=== PATIENT | female | born 1975 | race Caucasian/White ===

== ENCOUNTER → 2018-06-08 12:20 | Outpatient (CLI) | payer OTHER, SELFPAY ==
--- NOTE | 2018-06-08 | DI.MG.S_ITS ---
BILATERAL DIGITAL SCREENING MAMMOGRAM 3D/2D WITH CAD: 06/08/2018 CLINICAL: Routine screening. Family history of breast cancer. Comparison is made to exam dated: [facility]. The tissue of both breasts is extremely dense, which lowers the sensitivity of mammography. Current study was also evaluated with a Computer Aided Detection (CAD) system. No significant masses, calcifications, or other findings are seen in either breast. There has been no significant interval change. IMPRESSION: NEGATIVE There is no mammographic evidence of malignancy. A 1 year screening mammogram is recommended. This exam was interpreted at Station ID: [id number]. NOTE: For mammograms, a report in lay terms will be sent to the patient. Approximately 15% of breast malignancies will not be visualized mammographically. In the management of a palpable breast mass, a negative mammogram must not discourage biopsy of a clinically suspicious lesion. Electronically Signed By: Yann nguyen/brandie:06/08/2018 13:54:26 letter sent: Normal Exam ACR BI-RADS Category 1: Negative [id number]
== END ==
PROVIDERS: PCP Obstetrics & Gynecology; Visit Provider Obstetrics & Gynecology
DX: Z12.31 Encounter for screening mammogram for malignant neoplasm of breast (principal); Z80.3 Family history of malignant neoplasm of breast
CPT/HCPCS: 77063; 77067

== ENCOUNTER → 2020-12-04 14:09 | Outpatient (CLI) | payer OTHER, SELFPAY ==
--- NOTE | 2020-12-04 14:11 | DI.MG.S_ITS ---
BILATERAL DIGITAL SCREENING MAMMOGRAM 3D/2D WITH CAD: 12/04/2020 CLINICAL: Routine screening. Family history of breast cancer. Comparison is made to exams dated: 06/08/2018 mammogram and 07/07/2016 mammogram - [facility]. The tissue of both breasts is extremely dense, which lowers the sensitivity of mammography. Current study was also evaluated with a Computer Aided Detection (CAD) system. No significant masses, calcifications, or other findings are seen in either breast. There has been no significant interval change. IMPRESSION: NEGATIVE There is no mammographic evidence of malignancy. A 1 year screening mammogram is recommended. This exam was interpreted at Station ID: [id number]. NOTE: For mammograms, a report in lay terms will be sent to the patient. Approximately 15% of breast malignancies will not be visualized mammographically. In the management of a palpable breast mass, a negative mammogram must not discourage biopsy of a clinically suspicious lesion. Electronically Signed By: Niall moore/brandie:12/04/2020 15:51:48 letter sent: Normal Exam ACR BI-RADS Category 1: Negative [id number]
== END ==
PROVIDERS: PCP Obstetrics & Gynecology; Referring Provider Obstetrics & Gynecology; Visit Provider Obstetrics & Gynecology
DX: Z12.31 Encounter for screening mammogram for malignant neoplasm of breast (principal); Z80.3 Family history of malignant neoplasm of breast
CPT/HCPCS: 77063; 77067

== ENCOUNTER → 2021-09-10 13:20 | Outpatient (CLI) | payer OTHER, SELFPAY ==
--- NOTE | 2021-09-10 | DI.MG.S_ITS ---
BILATERAL DIGITAL DIAGNOSTIC MAMMOGRAM 3D/2D: 09/10/2021 CLINICAL: Bilateral Lumps. Comparison is made to exams dated: 06/08/2018 mammogram, 12/04/2020 mammogram, and 07/07/2016 mammogram - [facility]. The tissue of both breasts is extremely dense, which lowers the sensitivity of mammography. No significant masses, calcifications, or other findings are seen in either breast. IMPRESSION: INCOMPLETE: NEEDS ADDITIONAL IMAGING EVALUATION There are no abnormalities seen in either breast to correspond with the palpable nodularities in the outer aspect, however, ultrasound is recommended. Ultrasound will be performed immediately following the current exam. This exam was interpreted at Station ID: [id number]. NOTE: For mammograms, a report in lay terms will be sent to the patient. Approximately 15% of breast malignancies will not be visualized mammographically. In the management of a palpable breast mass, a negative mammogram must not discourage biopsy of a clinically suspicious lesion. Electronically Signed By: Yann Rod M.D. ddp/:09/10/2021 14:07:50 ACR BI-RADS Category 0: Incomplete [id number]
--- NOTE | 2021-09-10 | DI.US.S_ITS ---
LIMITED ULTRASOUND OF LEFT BREAST: 09/10/2021 CLINICAL: Palpable left breast lump by physician. Comparison is made to exams dated: 09/10/2021 mammogram, 12/04/2020 mammogram, 06/08/2018 mammogram, and 07/07/2016 mammogram - [facility]. Real-time ultrasound of the left breast 3 o'clock region was performed on the area of interest. No discrete cystic or solid mass lesion identified in the area of palpable abnormality. IMPRESSION: NEGATIVE There is no sonographic evidence of malignancy. There is no abnormality seen in the left breast to correspond with the palpable abnormality at 3 o'clock, however, clinical followup is recommended. A 1 year screening mammogram is recommended. This exam was interpreted at Station ID: [id number]. Electronically Signed By: Yann Rod M.D. ddwalt/:09/10/2021 14:57:50 Entry: aa - 09/11/2021 11:59:19 Ultrasound BI-RADS: 1 Negative
--- NOTE | 2021-09-10 | DI.US.S_ITS ---
LIMITED ULTRASOUND OF RIGHT BREAST AND AXILLA: 09/10/2021 CLINICAL: Palpable right breast lump by physician. Comparison is made to exams dated: 09/10/2021 mammogram, 12/04/2020 mammogram, 06/08/2018 mammogram, and 07/07/2016 mammogram - [facility]. Color flow and real-time ultrasound of the right breast 9-10 o'clock, and axilla regions were performed on the areas of interest. There is a 1 cm x 0.4 cm x 0.7 cm oval mass with an indistinct margin in the right breast at 10 o'clock posterior depth 8 cm from the nipple. This oval mass is hypoechoic. This correlates as palpated. Color flow imaging demonstrates that there is no vascularity present. No suspicious enlarged lymph nodes were seen sonographically in the right axilla. IMPRESSION: SUSPICIOUS OF MALIGNANCY The 1 cm x 0.4 cm x 0.7 cm oval mass in the right breast is suspicious of malignancy. An ultrasound guided biopsy is recommended. The findings were discussed with the patient at the conclusion of the study by Dr. Vidal. This exam was interpreted at Station ID: [id number]. Electronically Signed By: Yann Rod M.D. ddwalt/:09/10/2021 14:56:49 letter sent: Biopsy Required Ultrasound BI-RADS: 4 Suspicious for malignancy
== END ==
PROVIDERS: PCP Student in an Organized Health Care Education/Training Program; Referring Provider Student in an Organized Health Care Education/Training Program; Visit Provider Student in an Organized Health Care Education/Training Program
DX: R92.2 Inconclusive mammogram (principal); N63.25 Unspecified lump in the left breast, overlapping quadrants; N63.11 Unspecified lump in the right breast, upper outer quadrant
CPT/HCPCS: 76642; 77066; G0279

== ENCOUNTER → 2021-10-25 09:33 | Outpatient (CLI) | payer OTHER, SELFPAY ==
--- NOTE | 2021-10-25 | DI.RAD.S_ITS ---
PROCEDURE: XR FOOT LT MIN 3V INDICATIONS: LEFT FOOT PAIN TECHNIQUE: 3 views of the foot were acquired. COMPARISON: None. FINDINGS: Bones: No fractures or dislocations. No suspicious bony lesions. Soft tissues: No tibiotalar joint effusion. Achilles tendon appears normal. IMPRESSION: No fracture. No osseous lesion. If symptoms and/or clinical suspicion for pathology persists, further assessment with repeat radiographs (7-10 days) or advanced imaging (e.g. CT, MRI or bone scan) should be considered. Dictated by: Joann Vidal MD, PhD on 10/25/2021 at 11:54 Approved by: Joann Vidal MD, PhD on 10/25/2021 at 11:54
== END ==
PROVIDERS: PCP Student in an Organized Health Care Education/Training Program; Referring Provider Student in an Organized Health Care Education/Training Program; Visit Provider Student in an Organized Health Care Education/Training Program
DX: M79.672 Pain in left foot (principal)
CPT/HCPCS: 73630

== ENCOUNTER 2023-06-12 15:02 | Emergency (ER) | payer OTHER, SELFPAY ==
[2023-06-12] VITALS (8 sets, daily range): BP systolic 117–143; BP diastolic 78–88; PULSE 90–114; RESP 15–21; TEMP 36.7; O2SAT 98–100; BMI 26.1
--- NOTE | 2023-06-12 15:45 | ED_ITS ---
HPI - Head Injury General Chief complaint: Head Injury Stated complaint: blacked out and fell T-3/headache Time Seen by Provider: 06/12/23 15:42 Source: patient Mode of arrival: Ambulatory Limitations: no limitations History of Present Illness HPI Narrative: 47-year-old female oral contraceptives with complaint of syncopal episode 3 days ago. Patient states she was in the shower. She got lightheaded felt like she was going to pass out she remembers falling from hitting her head on the tile of the bathtub. Patient states she is felt lightheaded in the shower before she thinks she gets vasa dilated. She had a upper respiratory infection over the weekend with nasal congestion and suspect that this combination caused her to pass out. States that she has had headaches since then. She does have small cut on the edge of her nose. She describes the headache as being on the left frontal and behind as well. She thinks that she hit the side of the wall and then fell and hit her head on the edge of the tub. Patient states she also has some bruising on her left upper arm. She states she has felt lightheaded in the past. Does not regularly pass out. She denies any chest pain, no shortness of breath. She states her nasal congestion has resolved. She denies any nausea or vomiting today. Denies any new GI or urinary symptoms. No new swelling in extremities. Patient states she reached out to her physician she has had persistent headache although she describes it as [id number] since she hit her head. They recommended she come for evaluation. She is not on any anticoagulants. She does take an oral contraceptive. Patient has not had any long distance travel. Has had prior C-sections remotely. No tobacco, occasional alcohol but none recently. No recreational drugs. She is accompanied by her . Related Data Previous Rx's Medication Instructions Recorded zolpidem 10 mg tablet 10 mg PO BEDTIME PRN sleep #20 tabs 09/05/20 norgestimate 0.25 mg-ethinyl See Rx Instructions .Route 10/14/22 estradiol 35 mcg tablet .COMPLEX #84 tabs Allergies Allergy/AdvReac Type Severity Reaction Status Date / Time Penicillins [PENICILLINS] Allergy Unknown Unverified 09/05/20 16:11 Review of Systems Review of Systems ROS Unobtainable: All systems reviewed & are unremarkable except as noted in HPI and below Patient History Surgical History Status post delivery (10/02/09) Status post delivery (05/05/07) History of third molar tooth extraction History of tonsillectomy Social History Smoking Status: Never smoker Smoking Status: Never smoker alcohol intake frequency: holidays/special occasions only Substance Use Type: does not use Exam Narrative Exam Narrative: GEN: Patient appears in mild distress. HEAD: No evidence of trauma, no raccoon/Jensen sign. NECK: Nontender, painless range of motion, trachea midline Negative Nexus criteria, no midline line tenderness, distracting injury, altered mental status, neuro deficit, recent EtOH. EYES: PERRLA, EOMI ENT: External inspection normal except for small superficial laceration over the left bridge of the nose, trachea is midline, TM's are normal no hemotypanum, Nares are clear, no septal hematoma, no dental or oral injury, airway is normal and with normal occlusion, No bony tenderness RESP: Chest is nontender and has symmetric movement, no ecchymosis, breath sounds are normal no crackles, wheezes or rales CVS: Heart sounds are normal, no murmur noted, No JVD. ABG/GI: Nontender, soft, normal bowel sounds, no distention, no organomegaly, pelvic rock is negative NEURO: Oriented AOx3, neuro is grossly intact, sensation and motor is normal all 4 extremities moving, cranial nerves II through XII are intact, GCS is 15 PSYCH: Normal mood and affect SKIN: Intact, warm and dry, no crepitus and without decubitus, patient has ecchymosis bilateral upper extremities. BACK: No CVA tenderness, no vertebral tenderness, no step-off's, no crepitus EXT: Atraumatic, hips are nontender, no pedal edema, normal color and temperature, normal range of motion of extremities with normal tendon exam, 2+ pulses in all four extremities Initial Vital Signs Initial Vital Signs: Vital Signs Temperature 98.1 F 06/12/23 15:04 Pulse Rate 114 H 06/12/23 15:04 Respiratory Rate 18 06/12/23 15:04 Blood Pressure 143/88 H 06/12/23 15:04 Pulse Oximetry 98 06/12/23 15:04 Oxygen Delivery Method Room Air 06/12/23 15:04 Scores GCS [place] coma scale eye opening: Spontaneous [place] coma scale verbal response: Orientated [place] coma scale motor response: Obey commands [place] coma scale total score: 15 Course Orders Ordered: ED Orders 06/12/23 15:51 CT head/brain wo con Stat XR chest 1V Stat 06/12/23 15:55 Covid-19 + FLU A/B + RSV - PCR Stat 06/12/23 16:30 Complete Blood Count AUTO DIFF Stat Comprehensive Metabolic Panel Stat D Dimer Stat Lipase Stat Troponin & CK Cardiac Panel Stat 06/12/23 17:45 EKG-12 Lead Stat Vital Signs Vital signs: Vital Signs - 8 hr 06/12/23 15:04 06/12/23 16:28 06/12/23 16:30 Temperature 98.1 F Pulse Rate 114 H 103 H 101 H Respiratory Rate 18 15 15 Blood Pressure 143/88 H Pulse Oximetry 98 100 Oxygen Delivery Method Room Air 06/12/23 16:33 06/12/23 16:33 06/12/23 16:45 Temperature Pulse Rate 102 H 93 H Respiratory Rate 21 20 Blood Pressure 127/78 Pulse Oximetry 100 100 Oxygen Delivery Method 06/12/23 16:45 06/12/23 17:00 06/12/23 17:00 Temperature Pulse Rate 92 H Respiratory Rate 16 Blood Pressure 124/79 121/79 Pulse Oximetry 100 Oxygen Delivery Method 06/12/23 17:15 06/12/23 17:15 06/12/23 17:30 Temperature Pulse Rate 90 Respiratory Rate 18 Blood Pressure 117/78 118/78 Pulse Oximetry 100 Oxygen Delivery Method 06/12/23 17:30 Temperature Pulse Rate 90 Respiratory Rate 16 Blood Pressure Pulse Oximetry 100 Oxygen Delivery Method MDM - Head Injury Lab Data 06/12/23 16:30 06/12/23 16:30 Labs: Lab Results 06/12/23 06/12/23 Range/Units 15:55 16:30 WBC 6.1 (4.5-11.0) X10^3/uL RBC 4.96 (4.0-5.2) X10^6/uL Hgb 15.0 (12.0-16.0) g/dL Hct 44.6 (36-46) % MCV 89.8 (80-100) fL MCH 30.1 (26-34) PG MCHC 33.6 (30-36) % RDW 13.5 (11.6-14.8) % Plt Count 221 (150-400) X10^3/uL Neut % (Auto) 60.5 (50-75) % Lymph % (Auto) 32.3 (25-40) % Millard % (Auto) 6.6 (3-14) % Eos % (Auto) 0.3 L (2-4) % Baso % (Auto) 0.3 (0-2) % Neut # (Auto) 3700 (4367-5081) /uL Lymph # (Auto) 2000 (0153-2073) /uL Millard # (Auto) 400 (0-900) /uL Eos # (Auto) 0 (0-450) /uL Baso # (Auto) 0 (0-100) /uL D-Dimer 234 (<500) ng/ml Sodium 136 L (137-145) mmol/L Potassium 4.1 (3.4-5.1) mmol/L Chloride 103 (98-107) mmol/L Carbon Dioxide 25 (22-32) mmol/L BUN 18 H (7-17) mg/dL Creatinine 0.84 (0.52-1.04) mg/dL Estimated GFR > 60 (>60) mL/min BUN/Creatinine Ratio 21.4 (6-22) Glucose 95 (70-100) mg/dL Calcium 9.6 (8.4-10.2) mg/dL Total Bilirubin 0.6 (0.2-1.3) mg/dL AST 40 H (14-36) IU/L ALT 18 (<35) IU/L Alkaline Phosphatase 52 (38-126) U/L Total Creatine Kinase 46 (30-135) U/L Troponin I < 0.012 (0.01-0.034) ng/mL Total Protein 7.9 (6.3-8.2) g/dL Albumin 4.2 (3.5-5.0) g/dL Globulin 3.7 (1.7-4.1) g/dL Albumin/Globulin Ratio 1.1 (1.0-2.8) Lipase 166 (23-300) U/L SARS-CoV-2 (PCR) Negative (Negative) Influenza A (RT-PCR) Flu a negative (NEGATIVE) Influenza B (RT-PCR) Flu b negative (NEGATIVE) RSV (PCR) Negative (Negative) Imaging Data Chest x-ray: Radiologist's Impression: [address] [address] XRay Report Signed Patient: Melba Frost MR#: [id number] : 1975 Acct:[id number] Age/Sex: 47 / F Date of Service: 06/12/23 Loc: ED Accession Number: [id number] Procedure: XR chest 1V Ordering Provider: Marissa Fuentes D.O. PROCEDURE: XR CHEST 1V INDICATIONS: syncope TECHNIQUE: One view of the chest was acquired. COMPARISON: [facility], CT, CT HEAD/BRAIN WO CON, 06/12/2023, 15:59. FINDINGS: Surgical changes and devices: None. Lungs and pleura: Lungs are clear. No pleural effusions or pneumothorax. Mediastinum: Mediastinal contours appear normal. Heart size is normal. Bones and chest wall: No suspicious bony lesions. No displaced rib fracture is identified on this single view chest study. Overlying soft tissues appear unremarkable. IMPRESSION: No acute cardiopulmonary abnormality is seen. No displaced rib fracture or pneumothorax can be seen. Dictated by: Rodrigue Beckwith M.D. on 06/12/2023 at 15:26 Approved by: Rodrigue Beckwith M.D. on 06/12/2023 at 15:27 CT scan - head: Radiologist's Impression: Close Head CT (Signed) Rodrigue Beckwith - 06/12/23 Chest X-Ray (Signed) Rodrigue Beckwith - 06/12/23 Foot X-Ray (Signed) Joann Vidal - 10/25/21 Mammogram Diagnostic (Signed) Yann Rod - 09/10/21 Breast Ultrasound (Signed) Yann Rod - 09/10/21 Breast Ultrasound (Signed) Yann Rod - 09/10/21 Mammogram Screening (Signed) Niall Magallanes - 12/04/20 Mammogram Screening (Signed) Yann Rod - 06/08/18 Launch?Image [address] [address] [address] Scan Report Signed Patient: Melba Frost MR#: [id number] : 1975 Acct:[id number] Age/Sex: 47 / F Date of Service: 06/12/23 Loc: ED Accession Number: [id number] Procedure: CT head/brain wo con Ordering Provider: Marissa Fuentes D.O. PROCEDURE: CT HEAD/BRAIN WO CON INDICATIONS: syncope, persistent montero TECHNIQUE: Noncontrast 4.5 mm thick angled axial sections acquired from the foramen magnum to the vertex, with coronal and sagittal reformats. For radiation dose reduction, the following was used: automated exposure control, adjustment of mA and/or kV according to patient size. COMPARISON: None. FINDINGS: Image quality: Diagnostic. CSF spaces: Basal cisterns are patent. No extra-axial fluid collections. Ventricles are normal in size and shape. Brain: No midline shift. No intracranial masses or hemorrhage. Wood-white matter interface is normal. Skull and face: Calvarium and visualized facial bones are intact, without suspicious lesions. Sinuses: Visualized sinuses and mastoids are clear. IMPRESSION: No acute intracranial pathology. No acute intracranial hemorrhage is seen. No displaced calvarial fracture can be seen. Dictated by: Rodrigue Beckwith M.D. on 06/12/2023 at 15:25 Approved by: Rodrigue Beckwith M.D. on 06/12/2023 at 15:26 ECG Data Attestation: I personally reviewed and interpreted this ECG as follows: Prior ECG tracings: not available for review Interpretation: Sinus rhythm rate of 90 WV 128 QRS is 74 QTC of 408. RSR in V1 V2. Low- voltage. No prior for comparison. No acute ST elevation appreciated otherwise. MDM Narrative Medical decision making narrative: This is a 47-year-old female who comes to the emergency department with complaint of syncopal episode causing head injury. Patient states this was 3 days prior. She had a little bit of an upper respiratory infection. Had gotten into the shower felt very lightheaded with a hot water likely vasa dilated but is on oral contraceptives. Since then patient has had little bit of persistent headache. No bony tenderness although she has a small superficial lack over her nose. Suspicion for facial fractures as low but plan for head CT, chest x-ray and syncope workup with EKG and lab. Head CT is negative Chest x-ray is negative EKG shows nonspecific change. RSR. Low-voltage. CBC is negative, dimer is 234, sodium is 136 with a BUN of 18 otherwise appropriate renal function electrolytes AST is 40, troponins negative. COVID/influenza/RSV is negative. Patient felt appropriate for discharge home. Discharge Plan Departure Patient Disposition: Home Clinical Impression: Syncope, Head injury Activity Restrictions/Additional Instructions: Please follow-up with your physician if symptoms are persisting. Your workup today was overall reassuring. Head CT showed no bleed or acute change. Please return for new or worsening symptoms, recurrent episodes of passing out, severe headaches or worsening headaches, sudden vision changes, new chest pain, shortness of breath, persistent vomiting, new swelling in her extremities or other new or concerning changes. Prescriptions: No Action norgestimate-ethinyl estradiol 0.25-35 mg-mcg tablet See Rx Instructions .ROUTE .COMPLEX Qty: 84 3RF Dose Instruction: take 1 tablet by mouth once daily Rx Instructions: take 1 tablet by mouth once daily zolpidem 10 mg tablet 10 mg PO BEDTIME PRN (Reason: sleep) Qty: 20 1RF Referrals: Andie Matias MD [Primary Care Provider] - Stand Alone Forms: Patient Portal/API
--- NOTE | 2023-06-12 15:51 | DI.CT.S_ITS ---
PROCEDURE: CT HEAD/BRAIN WO CON INDICATIONS: syncope, persistent montero TECHNIQUE: Noncontrast 4.5 mm thick angled axial sections acquired from the foramen magnum to the vertex, with coronal and sagittal reformats. For radiation dose reduction, the following was used: automated exposure control, adjustment of mA and/or kV according to patient size. COMPARISON: None. FINDINGS: Image quality: Diagnostic. CSF spaces: Basal cisterns are patent. No extra-axial fluid collections. Ventricles are normal in size and shape. Brain: No midline shift. No intracranial masses or hemorrhage. Wood-white matter interface is normal. Skull and face: Calvarium and visualized facial bones are intact, without suspicious lesions. Sinuses: Visualized sinuses and mastoids are clear. IMPRESSION: No acute intracranial pathology. No acute intracranial hemorrhage is seen. No displaced calvarial fracture can be seen. Dictated by: Rodrigue Beckwith M.D. on 06/12/2023 at 15:25 Approved by: Rodrigue Beckwith M.D. on 06/12/2023 at 15:26
--- NOTE | 2023-06-12 15:51 | DI.RAD.S_ITS ---
PROCEDURE: XR CHEST 1V INDICATIONS: syncope TECHNIQUE: One view of the chest was acquired. COMPARISON: [facility], CT, CT HEAD/BRAIN WO CON, 06/12/2023, 15:59. FINDINGS: Surgical changes and devices: None. Lungs and pleura: Lungs are clear. No pleural effusions or pneumothorax. Mediastinum: Mediastinal contours appear normal. Heart size is normal. Bones and chest wall: No suspicious bony lesions. No displaced rib fracture is identified on this single view chest study. Overlying soft tissues appear unremarkable. IMPRESSION: No acute cardiopulmonary abnormality is seen. No displaced rib fracture or pneumothorax can be seen. Dictated by: Rodrigue Beckwith M.D. on 06/12/2023 at 15:26 Approved by: Rodrigue Beckwith M.D. on 06/12/2023 at 15:27
[2023-06-12 16:41] LABS: Influenza A - CEPHEID Flu A NEGATIVE (NEGATIVE); Influenza B - CEPHEID Flu B NEGATIVE (NEGATIVE); Respiratory Syncytial Virus Negative (Negative)
[2023-06-12 16:43] LABS: COVID-19 CEPHEID 4-PLEX PCR Negative (Negative)
[2023-06-12 16:46] LABS: Add Manual Diff / Slide Review NO; Basophils Absolute Auto 0 /uL (0-100); Basophils Percent Auto 0.3 % (0-2); Eosinophils Absolute Auto 0 /uL (0-450); Eosinophils Percent Auto 0.3 % (2-4); Hematocrit 44.6 % (36-46); Lymphocytes Absolute Auto 2000 /uL (1100-4500); Lymphocytes Percent Auto 32.3 % (25-40); Mean Corpuscular HGB Conc 33.6 % (30-36); Mean Corpuscular Hemoglobin 30.1 PG (26-34); Mean Corpuscular Volume 89.8 fL (80-100); Monocytes Absolute Auto 400 /uL (0-900); Monocytes Percent Auto 6.6 % (3-14); Neutrophils Absolute Auto 3700 /uL (1500-7000); Neutrophils Percent Auto 60.5 % (50-75); Platelet Count 221 X10^3/uL (150-400); Red Blood Cell Count 4.96 X10^6/uL (4.0-5.2); Red Cell Distribution Width 13.5 % (11.6-14.8); White Blood Cell Count 6.1 X10^3/uL (4.5-11.0)
[2023-06-12 16:51] LABS: D Dimer 234 ng/ml (<500)
[2023-06-12 16:54] LABS: Alanine Aminotransferase 18 IU/L (<35); Albumin 4.2 g/dL (3.5-5.0); Albumin Globulin Ratio 1.1 (1.0-2.8); Alkaline Phosphatase 52 U/L (38-126); Aspartate Aminotransferase 40 IU/L (14-36); BUN Creatinine Ratio 21.4 (6-22); Bilirubin Total 0.6 mg/dL (0.2-1.3); Blood Urea Nitrogen 18 mg/dL (7-17); Calcium 9.6 mg/dL (8.4-10.2); Carbon Dioxide 25 mmol/L (22-32); Chloride 103 mmol/L (98-107); Creatine Kinase 46 U/L (30-135); Estimated Glomerular Filt Rate > 60 mL/min (>60); Globulin 3.7 g/dL (1.7-4.1); Glucose 95 mg/dL (70-100); HEMOLYSIS 16 (0-50); Lipase 166 U/L (23-300); Potassium 4.1 mmol/L (3.4-5.1); Sodium 136 mmol/L (137-145); Total Protein 7.9 g/dL (6.3-8.2)
[2023-06-12 17:05] LABS: Troponin I < 0.012 ng/mL (0.01-0.034)
== END 2023-06-12 17:55 | disposition home or self-care (01) ==
PROVIDERS: Emergency Provider Emergency Medicine; PCP Student in an Organized Health Care Education/Training Program
DX: S09.90XA Unspecified injury of head, initial encounter (principal); R55 Syncope and collapse; W18.2XXA Fall in (into) shower or empty bathtub, initial encounter; Z20.822 Contact with and (suspected) exposure to COVID-19
CPT/HCPCS: 0241U; 36415; 70450; 71045; 80053; 82550; 83690; 84484; 85025; 85379; 93005; 93010; 99284